=== PATIENT | female | born 1945 ===

== ENCOUNTER 2016-07-24 16:35 | Emergency (ER) | payer SELFPAY ==
[2016-07-24 17:17] LABS: RBC URINE 1 /hpf (0-3); URINE BILIRUBIN NEGATIVE (NEGATIVE); URINE BLOOD NEGATIVE (NEGATIVE); URINE COLOR Yellow (YELLOW); URINE GLUCOSE (UA) NORMAL (Normal); URINE KETONE NEGATIVE (NEGATIVE); URINE LEUKOCYTE ESTERASE 1+ Leu/uL (Negative); URINE PROTEIN NEGATIVE (NEGATIVE); URINE UROBILINOGEN NORMAL mg/dL (0.2-1.0); WBC URINE 2 /hpf (0-5)
[2016-07-24] MEDS ORDERED: Sodium Chloride 0.9% 1,000 ML IV ONE (17:46)
[2016-07-24] MEDS ORDERED: Morphine 4 MG/ML VIAL ONE (17:53)
[2016-07-24] MEDS ORDERED: Sodium Chloride 0.9% 1,000 ML ONE (17:53)
--- NOTE | 2016-07-24 17:53 | C.PDOC ---
History Of Present Illness 70 y/o female presents to ED with c/o intermittent abdominal pain for 6 years. She reports that pain has been constant over the last 7 days. Patient states pain is localized to suprapubic area. Patient reports she has had numerous negative workups by multiple doctors in the past for the similar symptoms. Patient states she has been having urinary frequency and dysuria, noting she has been voiding less urine. Otherwise, denies fever, chills, nausea, vomiting, diarrhea, or other associated symptoms. Time Seen by Provider: 07/24/16 17:09 Chief Complaint (Nursing): Female Genitourinary History Per: Patient History/Exam Limitations: no limitations Onset/Duration Of Symptoms: Persistent Current Symptoms Are (Timing): Still Present Recent travel outside of the [place]: No Past Medical History Reviewed: Historical Data, Nursing Documentation, Vital Signs Vital Signs: Last Vital Signs Temp 97.6 F 07/24/16 16:55 Pulse 63 07/24/16 16:55 Resp 16 07/24/16 16:55 BP 182/80 H 07/24/16 16:55 Pulse Ox 98 07/24/16 17:55 Family History: States: Unknown Family Hx - Social History Hx Alcohol Use: No Hx Substance Use: No Review Of Systems Except As Marked, All Systems Reviewed And Found Negative. Constitutional: Negative for: Fever, Chills Respiratory: Negative for: Cough Gastrointestinal: Positive for: Abdominal Pain. Negative for: Nausea, Vomiting Genitourinary: Positive for: Dysuria, Frequency. Negative for: Incontinence, Hematuria Musculoskeletal: Negative for: Back Pain Skin: Negative for: Rash Physical Exam - Physical Exam Appears: Non-toxic, Other (moderate painful distress) Skin: Normal Color, Warm, Dry Head: Atraumatic, Normacephalic Eye(s): bilateral: Normal Inspection, PERRL, EOMI Oral Mucosa: Moist Neck: Normal ROM Chest: Symmetrical Cardiovascular: Rhythm Regular Respiratory: Normal Breath Sounds, No Rales, No Rhonchi, No Wheezing Gastrointestinal/Abdominal: Bowel Sounds (normal bowel sounds), Soft, No Tenderness, No Guarding, No Rebound Back: No CVA Tenderness Pelvic: Normal External Exam, No Vaginal Bleeding, Vaginal Discharge (scant white discharge), Adnexal Tenderness, Other (vaginal wall tenderness) Extremity: Normal ROM, Capillary Refill (< 2 sec. ) Neurological/Psych: Oriented x3, Normal Speech, Normal Cognition, Normal Motor Gait: Steady ED Course And Treatment - Laboratory Results Result Diagrams: 07/24/16 17:59 07/24/16 17:59 O2 Sat by Pulse Oximetry: 98 (RA) Pulse Ox Interpretation: Normal Progress Note: Treated with Toradol, Morphine, and IVFs. Labs ordered and reviewed. Medical Decision Making Medical Decision Making: Differential Diagnosis: UTI, renal colic, pyelo, urinary retention Patient reports that she had an outpatient CT scan which was negative, and showed no kidney stone. the patient is able to urinate and the bladder scanner is at 20cc, no urinary retention. The UA is negative for UTI. Pelvic exam shows tenderness and will order ultrasound. On re-exam, the patient reports no improvement of symptoms. Lidocaine urojet was applied to area. Disposition - Disposition Disposition Time: 18:53 Condition: FAIR - POA Present On Arrival: None - Clinical Impression Clinical Impression: Dysuria, Pelvic pain - PA / [employer] / Resident Statement MD/DO has reviewed & agrees with the documentation as recorded. - Scribe Statement The provider has reviewed the documentation as recorded by the Scribe Benson Salas All medical record entries made by the Samson were at my direction and personally dictated by me. I have reviewed the chart and agree that the record accurately reflects my personal performance of the history, physical exam, medical decision making, and the department course for this patient. I have also personally directed, reviewed, and agree with the discharge instructions and disposition. Physician Patient Turnover Patient Signed Over To: Iram Ca Handoff Comments: Pending ultrasound and disposition
[2016-07-24 18:05] LABS: BASO # 0.1 K/uL (0.0-0.2); BASO % 0.8 % (0.0-2.0); EOS # 0.1 K/uL (0.0-0.7); EOS % 0.8 % (0.0-4.0); HEMATOCRIT 35.6 % (34.0-47.0); LYMPH # 1.9 K/uL (1.0-4.3); LYMPH % 26.2 % (20.0-40.0); MEAN CELL VOLUME 84.9 fL (81.0-99.0); MEAN CORPUSCULAR HEMOGLOBIN 28.3 pg (27.0-31.0); MEAN CORPUSCULAR HGB CONC 33.3 g/dL (33.0-37.0); MEAN PLATELET VOLUME 8.3 fL (7.2-11.7); MONO # 0.4 K/uL (0.0-0.8); MONO % 5.6 % (0.0-10.0); RED CELL DISTRIBUTION WIDTH 13.3 % (11.5-14.5); WHITE BLOOD COUNT 7.3 K/uL (4.8-10.8)
[2016-07-24] MEDS ORDERED: Lidocaine 2% Jelly (Uro-Jet) TOP ONE (18:17)
[2016-07-24 18:27] LABS: CHLORIDE 96 mmol/L (98-107); POTASSIUM 3.7 mmol/L (3.6-5.2); SODIUM 127 mmol/L (132-148)
[2016-07-24 18:29] LABS: ALB/GLOB RATIO 1.5 (1.0-2.1); ALKALINE PHOSPHATASE 85 U/L (38-126); AST/SGOT 33 U/L (14-36); BLOOD UREA NITROGEN 11 mg/dL (7-17); CARBON DIOXIDE 19 mmol/L (22-30); GFR AFRICAN-AMERICAN > 60; TOTAL PROTEIN 6.8 g/dL (6.3-8.3)
[2016-07-24] MEDS ORDERED: Lidocaine 2% Jelly (Uro-Jet) ONE (18:29)
[2016-07-24 18:30] LABS: ALT/SGPT 29 U/L (9-52); CALCIUM 8.7 mg/dl (8.6-10.4); GLUCOSE,RANDOM 101 mg/dL (65-105)
--- NOTE | 2016-07-24 21:06 | US ---
EXAM: US Pelvis Complete, Transabdominal US Pelvis, Transvaginal CLINICAL HISTORY: 70 years old, female; Pain; Pelvic pain; Additional info: Severe pelvic pain TECHNIQUE: Real-time transabdominal and transvaginal pelvic ultrasound (complete) with image documentation. Transvaginal imaging was used for better evaluation of the endometrium and adnexa. COMPARISON: No relevant prior studies available. FINDINGS: Uterus/cervix: Uterus measures 5.7 x 3.8 x 4.8 CM. Endometrium measures 4.5 mm. Trace fluid in endometrial cavity. Pedunculated posterior fibroid measuring 1.6 x 1.2 x 1.5 CM Right ovary: Right ovary measures 1 x 0.8 x 1.3 CM. Normal blood flow. Left ovary: Left ovary is not visualized. Free fluid: No free fluid. Bladder: Unremarkable as visualized. IMPRESSION: 1. Trace fluid in the endometrium, which is abnormal for a patient of this age. Cannot exclude underlying endometrial lesion. Recommend followup. 2. Pedunculated posterior uterine fibroid measuring 1.6 x 1.2 x 1.5 CM. 3. Left ovary is not visualized.
[2016-07-24 22:30] VITALS: O2SAT 97
[2016-07-24 23:24] VITALS: BP 154/53; PULSE 50; RESP 20; TEMP 99.1
== END 2016-07-24 23:27 | disposition home or self-care (01) ==
LOC: C.ER 16:35
DX: R10.2 Pelvic and perineal pain (principal); R30.0 Dysuria
CPT/HCPCS: 76830; 76856; 80053; 81001; 83690; 85025; 96361; 96374; 96375; 96376; 99285; J1885; J2270; J7040

== ENCOUNTER 2017-12-11 06:07 | Day surgery (SDC) | payer MEDICAID ==
[2017-12-10 11:20] VITALS: BMI 26.6
[2017-12-11 06:55] VITALS: O2SAT 100
[2017-12-11] MEDS ORDERED: Lactated Ringer's 1,000 ML IV ONE (08:10)
[2017-12-11] MEDS ORDERED: Etomidate 20 mg/10ml Inj IV ONE (08:17)
[2017-12-11] MEDS ORDERED: Midazolam 2 MG/2 ML VIAL ONE (08:18)
[2017-12-11 08:48] VITALS: TEMP 98.4
[2017-12-11 09:26] VITALS: PULSE 60
[2017-12-11 09:30] VITALS: BP 141/64; RESP 12
== END 2017-12-11 09:38 | disposition home or self-care (01) ==
LOC: C.ENDO 06:07
PROVIDERS: ATTEND Internal Medicine Gastroenterology
DX: R19.4 Change in bowel habit (principal); K57.90 Diverticulosis of intestine, part unspecified, without perforation or abscess without bleeding; K64.8 Other hemorrhoids
CPT/HCPCS: 45378; J2250; J7120